=== PATIENT | female | born 1985 | race Caucasian/White ===

== ENCOUNTER 2019-08-09 13:23 | Inpatient (IN) | payer OTHER ==
[~2019-08-09] VITALS: Ht 170.2 cm; Wt 80.9 kg
[2019-08-09] VITALS (24 sets, daily range): BP systolic 114–147; BP diastolic 65–90; PULSE 72–105; TEMP 97.5–98
--- NOTE | 2019-08-09 13:30 | NUR ---
G1 at 38.6 weeks gestation to LDR5 with c/o contractions. Patient changed into gown and wedged to left side in bed. EFMs explained and applied. FHR 120 bpm and reactive. CTX q2-3 minutes per toco, patient tense and breathing through them. VSS. SVE 5/90/-1. Patient was seen in the office earlier today and was dilated 4/70/-3. Dr. Ramirez called and notified and admit orders recieved. IV started in left forearm, labs drawn from site, LR bolus started. Patient requesting epidural. [employer]CH[employer]IC SUPERVISOR notified.
[2019-08-09 13:52] LABS: BASO # 0.1 (0.0-0.2); BASO % 0.4 % (0.0-2.0); EOS # 0.1 (0.0-0.7); EOS % 0.7 % (0-4.0); GRAN # 13.8 (1.4-6.5); GRAN % 82.6 % (42.2-75.2); HEMATOCRIT 43.4 % (37.0-47.0); HEMOGLOBIN 14.7 g/dl (12.5-16.0); LYMPH # 1.5 (1.2-3.4); LYMPH % 8.7 % (20.0-51.0); MEAN CELL VOLUME 92 fl (80.0-100.0); MEAN CORPUSCULAR HEMOGLOBIN 31 pg (27.0-31.0); MEAN CORPUSCULAR HGB CONC 34 g/dl (33.0-37.0); MEAN PLATELET VOLUME 11.8 fl (7.4-10.4); MONO # 1.1 (0.1-0.6); MONO % 6.5 % (1.7-9.3); PLATELET COUNT 193 K/mm3 (130-400); RED BLOOD COUNT 4.73 M/mm3 (4.10-5.30); REDCELL DISTRIBUTION WIDTH-CV 12.3 % (11.5-14.5)
--- NOTE | 2019-08-09 13:57 | NUR ---
1347 MEIR Beasley to room to place epidural. Patient sits upright on the side of the bed. EFM tracing maternal HR as it coorelates with spO2 tracing. FHR intermittenly traces at 130bpm. Test dose given at 1357 by MEIR Beasley. See anesthesia record for details.
[2019-08-09] MEDS ORDERED: PRENATAL MVI (14:40)
[2019-08-09] MEDS ORDERED: COLACE 100100 MG/CAP PO (14:40)
--- NOTE | 2019-08-09 15:15 | NUR ---
Small amount of fluid with thick meconium noted on chux. Nursery RN notified.
--- NOTE | 2019-08-09 17:29 | NUR ---
1703 Patient begins to push with contractions. 1707 Dr. Ramirez on unit. 1720 Dr. Ramirez called to room for delivery, patient continues to push with contractions. 1729 Spontaneous vaginal delivery of viable female by Dr. Ramirez. Cord clamped and cut and infant to the care of the nursery RN. 1734 Spontaneous delivery of placenta by Dr. Ramirez. Pitocin infusing at 333ml/hr per orders and protocol. Fundus firm, lochia WNL.
[2019-08-10 03:30] VITALS: BP 122/84; PULSE 72
[2019-08-10 07:00] VITALS: BP 122/82; PULSE 73; TEMP 98
--- NOTE | 2019-08-10 07:00 | NUR ---
Ambulates to the nursery to get baby. Back to room with baby. Assessment done. 0710 Ibuprofen 800 mg. given per request and as ordered. Denies any other needs at this time.
--- NOTE | 2019-08-10 12:54 | NUR ---
Initial visit; Stakes Player offered congratulations and God's blessings to Suki for the of her daughter.
[2019-08-10 14:00] VITALS: BP 118/83; PULSE 72; TEMP 97.8
[2019-08-10 21:00] VITALS: BP 118/72; PULSE 67; TEMP 98.1
[2019-08-11 07:30] VITALS: BP 139/85; PULSE 67; TEMP 98.2
--- NOTE | 2019-08-11 11:55 | NUR ---
1130-Reviewed discharge instructions and six week apt with patient. verbalized understanding denies questions. 1155-Escorted patient out with spouse and .
== END 2019-08-11 11:55 | disposition home or self-care (01) | DRG 807 ==
LOC: LDRO 13:23 → OB 14:44 → LDR 14:44 → OB 19:53
PROVIDERS: ADMIT Obstetrics & Gynecology
PROC: 10E0XZZ Delivery of Products of Conception, External Approach (ICD-10-PCS; principal; 2019-08-09)
PROC: 0HQ9XZZ Repair Perineum Skin, External Approach (ICD-10-PCS; 2019-08-09)
DX: O70.0 First degree perineal laceration during delivery (principal); Z37.0 Single live birth; O99.62 Diseases of the digestive system complicating childbirth; K21.9 Gastro-esophageal reflux disease without esophagitis; Z3A.38 38 weeks gestation of pregnancy
CPT/HCPCS: J2590; J7120

== ENCOUNTER → 2019-08-14 | Outpatient (CLI) | payer OTHER ==
[~2019-08-14] MED LIST: COLACE 100100 MG/CAP PO; PRENATAL MVI
--- NOTE | 2019-08-14 14:53 | NUR ---
Pt, Suki Warrenward, presents for outpatient consult with 5 day old baby girl, Salma Cartagena, and her spouse, Sourav Cartagena. Suki contacted this LC with concerns that her milk supply is not establishing well and Salma is not getting enough to eat. Salma was born by on [birth year] and weighed 6#12.3oz (3070 gms). She appeared to latch well in the hospital, but received SNS because of mild jaundice. Discharge weight was 6#7oz (2925 gms). Today Salma weighs 6#4.1oz (2838 gms), for a 7% weight loss. Pt reports Salma has 7-8 voids and a couple stools daily. The stool color is green/yellow, loose, and seedy. Size is described to be WNL. Feedings at home are frequent at the breast, have included some SNS after discharge that was discontinued after about 24 hours. She received a small amount of supplement two days ago and then this morning she had a 50ml bottle of breastmilk/formula mix. Salma has difficulty latching, she stays latched once the nipple shield is placed, which pt states is the norm for feedings at home as well. In the hospital she appeared to stay latched well. After Salma has a weight gain of 1.1oz (14 and 18 gms per side). she is supplemented about 1oz formula by bottle after. She has a large yellow stool as well. With gloved finger suck evaluation, Salma does extend her tongue and curl around the finger but she does not tolerate it being advanced very far, and the vacuum is mild. Pt pumps 10 ml after . POC: 3-step feeding plan. Offer breast about 10 min per side, supplement 1-1.5oz EBM or formula, and follow with pumping. Save EBM to feed for supplement. Herbal supplements and power pumping also reviewed. F/U: Dr. Chacon 08/15/19. With this LC after 3-4 days of feeding plan. Questions invited and answered.
== END ==
LOC: LAC 14:29
DX: Z39.1 Encounter for care and examination of lactating mother (principal); Z71.89 Other specified counseling

== ENCOUNTER → 2019-08-18 | Outpatient (CLI) | payer OTHER ==
--- NOTE | 2019-08-18 15:09 | NUR ---
Pt, Suki Cartagena, presents for outpatient consult with 9 day old baby girl, Salma Cartagena, to evalate milk supply and transfer. Salma was born on [birth year] and wieghed 6#12.3oz (3070 gms). At our consult four days ago she weighed 6#4.1oz (2838 gms). The family has been , supplementing and pumping as discussed at our previous consult. Today Salma weighs 6#10.9oz (3030 gms). Salma has four breastfeedings followed by about 45ml EBM/formula during the day, and four bottle feedings of about 60-70ml at the noc feedings. Suki pumps about 20ml after the daytime feedings and 60-70ml at the noc time feedings. After today Salma had a weight gain of 22 gms (0.7oz). She drinks 44ml EBM by bottle for a total intake of 66ml (2.3oz). It appears Suki is producing enough milk to cover about 2/3 of her current intake needs. However the frequent feeding and pumping are taking a toll on her. Pt and LC discuss options moving forward, in terms of managing milk supply to the best of her ability and balancing family and sleep. Aside from pumping 8 times daily, one of those is also a power pump session, and she recently started use of herbal supplements. She nutrition and fluid intake are WNL. POC: Discuss with spouse options to pursue /breast milk and balancing that will the rest of her needs. Meanwhile, continue 3-step plan. F/U: TBD, based on decisions about BF and pumping. Questions invited and answered.
== END ==
LOC: LAC 13:32
DX: Z39.1 Encounter for care and examination of lactating mother (principal); Z71.89 Other specified counseling

== ENCOUNTER 2019-09-04 20:36 | Day surgery (SDC) | payer OTHER ==
[~2019-09-04] VITALS: Ht 170.2 cm; Wt 72.7 kg
[2019-09-04] VITALS (7 sets, daily range): BP systolic 110–139; BP diastolic 72–81; PULSE 61–67; TEMP 97.7
--- NOTE | 2019-09-04 20:40 | NUR ---
Pt arrived on unit ambulatory as a direct admit for D&C to be done in the main OR. Vital signs stable. IV placed in right hand. LR infusing as ordered. See EMAR for details. Pt transferred to main OR via bed escorted by OR staff.
[2019-09-04] MEDS ORDERED: TYLENOL 500MG500 MG PO (21:21)
[2019-09-04] MEDS ORDERED: REGLAN 10MG10 MG/TAB PO (21:22)
--- NOTE | 2019-09-04 22:00 | NUR ---
Pt arrived back on unit from OR via bed. Pt oriented to room, bed and call light within reach. Plan of care reviewed with pt and at the bedside.
--- NOTE | 2019-09-04 23:45 | NUR ---
Pt status reviewed with Dr. Wetzel. Orders for discharge home received. Plan of care for discharge reviewed with pt and at the bedside. Both verbalized an understanding, agree with the plan and states no questions or concerns at this time.
[2019-09-05] VITALS: BP 126/76; PULSE 62
== END 2019-09-05 00:06 | disposition home or self-care (01) ==
LOC: OB 20:36 → LDRO 20:36
DX: O72.2 Delayed and secondary postpartum hemorrhage (principal)
CPT/HCPCS: OP; J1100; J1885; J2210; J2405; J2704; J3010; J7120

== ENCOUNTER 2019-12-11 19:54 | Emergency (ER) | payer OTHER ==
[~2019-12-11 19:54] MED LIST changes: +REGLAN 10MG10 MG/TAB PO; +TYLENOL 500MG500 MG PO
[2019-12-11 20:15] VITALS: BP 133/88; TEMP 99.2
[2019-12-11 20:48] LABS: BASO # 0.1 (0.0-0.2); BASO % 0.4 % (0.0-2.0); EOS # 0.2 (0.0-0.7); EOS % 1.2 % (0-4.0); GRAN # 14.2 (1.4-6.5); HEMATOCRIT 45.3 % (37.0-47.0); HEMOGLOBIN 14.7 g/dl (12.5-16.0); LYMPH # 1.2 (1.2-3.4); LYMPH % 7.2 % (20.0-51.0); MEAN CELL VOLUME 86 fl (80.0-100.0); MEAN CORPUSCULAR HEMOGLOBIN 28 pg (27.0-31.0); MEAN CORPUSCULAR HGB CONC 33 g/dl (33.0-37.0); MEAN PLATELET VOLUME 10.9 fl (7.4-10.4); MONO # 0.8 (0.1-0.6); MONO % 4.7 % (1.7-9.3); PLATELET COUNT 206 K/mm3 (130-400); RED BLOOD COUNT 5.25 M/mm3 (4.10-5.30); REDCELL DISTRIBUTION WIDTH-CV 13.1 % (11.5-14.5)
[2019-12-11 21:03] LABS: ALBUMIN 4.9 gm/dL (3.5-5.0); BILIRUBIN,TOTAL 0.5 mg/dL (0.0-1.0); C-REACTIVE PROTEIN 1.6 mg/dL (0.0-0.9); CALCIUM 9.5 mg/dL (8.4-10.2); CREATININE, serum 0.72 (0.52-1.25); POTASSIUM 4.1 mmol/L (3.4-5.0)
[2019-12-11 21:24] LABS: COLLECTION METHOD CLEAN CATCH
[2019-12-11 21:30] LABS: PH 7 (5-8); SQUAMOUS EPITHELIAL None Seen /hpf; URINE APPEARANCE Clear; URINE BACTERIA None Seen /hpf; URINE BILIRUBIN Negative (NEGATIVE); URINE BLOOD Negative (NEGATIVE); URINE COLOR Yellow; URINE GLUCOSE Negative (NEGATIVE); URINE KETONE Trace (NEGATIVE); URINE LEUKOCYTE ESTERASE Negative (NEGATIVE); URINE NITRATE Negative (NEGATIVE); URINE PROTEIN(semi-quant) Negative (NEGATIVE); URINE RBC 0-2 /hpf; URINE UROBILINOGEN Negative (NEGATIVE)
[2019-12-11] MEDS ORDERED: ROCEPHIN 2GM VIAL21 IJ (22:31)
[2019-12-11] MEDS ORDERED: DOXYCYCLINE HY100 MG PO (23:10)
[2019-12-11] MEDS ORDERED: FLAGYL500 MG PO (23:10)
[2019-12-11] MEDS ORDERED: NORCO 325 MG-51 TAB PO (23:34)
[2019-12-11 23:43] VITALS: PULSE 77
== END 2019-12-11 23:44 | disposition home or self-care (01) ==
LOC: COL.ER 19:54
PROVIDERS: Physician Assistant
DX: N80.9 Endometriosis, unspecified (principal); T83.39XA Other mechanical complication of intrauterine contraceptive device, initial encounter
CPT/HCPCS: J0696; J1885; J2270; J2405; J7030; Q9967